=== PATIENT | female | born 1985 | race American Indian/Alaskan Native ===

== ENCOUNTER 2017-11-15 06:59 | Observation (INO) | payer MEDICAID ==
--- NOTE | 2017-11-15 07:39 | C.PDOC ---
History Of Present Illness 32 year old female () presents to the emergency department with complaints of suprapubic pain associated with pelvic cramps and vaginal bleeding since this morning. Patient states that she is currently , LMP was 08/20/17. Patient reports nausea and vomiting. She denies fever, diarrhea, dysuria/ hematuria, vaginal discharge. Time Seen by Provider: 11/15/17 07:12 Chief Complaint (Nursing): Abdominal Pain History Per: Patient History/Exam Limitations: no limitations Onset/Duration Of Symptoms: Hrs Current Symptoms Are (Timing): Still Present Severity: Moderate Location Of Pain/Discomfort: Suprapubic Associated Symptoms: Nausea, Vomiting, Other (vaginal bleeding, pelvic cramps). denies: Diarrhea, Urinary Symptoms Abnormal Vaginal Bleeding: Yes Past Medical History Reviewed: Historical Data, Nursing Documentation, Vital Signs Vital Signs: Last Vital Signs Temp 97.7 F 11/17/17 08:04 Pulse 100 H 11/17/17 08:04 Resp 20 11/17/17 08:04 BP 130/71 11/17/17 08:04 Pulse Ox 98 11/17/17 08:04 - Medical History PMH: No Chronic Diseases Surgical History: No Surg Hx Family History: States: No Known Family Hx - Social History Hx Alcohol Use: No Hx Substance Use: No - Immunization History Hx Tetanus Toxoid Vaccination: No Hx Influenza Vaccination: No Review Of Systems Constitutional: Negative for: Fever, Chills Cardiovascular: Negative for: Chest Pain Respiratory: Negative for: Shortness of Breath Gastrointestinal: Positive for: Nausea, Vomiting. Negative for: Abdominal Pain , Diarrhea Genitourinary: Positive for: Vaginal Bleeding, Pelvic Pain. Negative for: Dysuria, Hematuria, Vaginal Discharge Skin: Negative for: Rash Physical Exam - Physical Exam Appears: Well, Non-toxic, In Acute Distress (uncomfortable appearing ) Skin: Warm, Dry, No Rash Eye(s): bilateral: Normal Inspection Oral Mucosa: Moist Cardiovascular: Rhythm Regular, Other (tachycardic) Respiratory: Normal Breath Sounds, No Rales, No Rhonchi, No Wheezing Gastrointestinal/Abdominal: Bowel Sounds, Soft, Tenderness (suprapubic tenderness), No Guarding, No Rebound, Other (obese, (-) McBurney's) Back: Normal Inspection, No CVA Tenderness Extremity: Normal ROM Neurological/Psych: Oriented x3 ED Course And Treatment - Laboratory Results Result Diagrams: 11/17/17 13:52 11/15/17 08:00 O2 Sat by Pulse Oximetry: 100 (RA) Pulse Ox Interpretation: Normal - CT Scan/US US Obstetrics Other Rad Studies (CT/US): Read By Radiologist, Radiology Report Reviewed CT/US Interpretation: IMPRESSION: Single intrauterine gestation with mean gestational age of 13 weeks and 3 days. No cardiac activity is documented consistent with demise. Important findings were discussed with HEIDY Vogt on 11/15/2017 at 10:17 a.m. Progress Note: Plan: Blood work, UA, US ordered and reviewed. Patient given IV NS bolus, PO tylenol, IV zofran. Reevaluation Time: 11:20 Reassessment Condition: Unchanged (Patient still having pain, IV morphine ordered.) - Physician Consult Information Physician Contacted: Cyndi Fernandez Outcome Of Conversation: Discussed patient with general foreman, patient will be taken for D&C (12:40pm) Disposition Counseled Patient/Family Regarding: Diagnosis, Need For Followup, Rx Given - Disposition Disposition: HOSPITALIZED Disposition Time: 12:45 Condition: STABLE - Clinical Impression Clinical Impression: demise - Scribe Statement The provider has reviewed the documentation as recorded by the Scribe (Gilberto Covington) Provider Attestation: All medical record entries made by the Scribe were at my direction and personally dictated by me. I have reviewed the chart and agree that the record accurately reflects my personal performance of the history, physical exam, medical decision making, and the department course for this patient. I have also personally directed, reviewed, and agree with the discharge instructions and disposition. Decision To Admit - Pt Status Changed To: Hospital Disposition Of: Inpatient - Admit Certification Admit to Inpatient:: After my assessment, the patient will require hospitalization for at least two midnights. This is because of the severity of symptoms shown, intensity of services needed, and/or the medical risk in this patient being treated as an outpatient. - InPatient: Physician Admission Certification:: see notes - . Bed Request Type: Same Day Surgery Admitting Physician: Cyndi Fernandez Patient Diagnosis: demise
[2017-11-15 08:11] LABS: BASO % 0.3 % (0.0-2.0); EOS % 0.3 % (0.0-4.0); HEMOGLOBIN 10.9 g/dL (11.0-16.0); LYMPH # 0.9 K/uL (1.0-4.3); LYMPH % 6.1 % (20.0-40.0); MEAN CELL VOLUME 89.8 fL (81.0-99.0); MEAN CORPUSCULAR HEMOGLOBIN 30.2 pg (27.0-31.0); MEAN CORPUSCULAR HGB CONC 33.6 g/dL (33.0-37.0); MEAN PLATELET VOLUME 8.8 fL (7.2-11.7); MONO # 0.7 K/uL (0.0-0.8); MONO % 4.5 % (0.0-10.0); NEUT # 13.2 K/uL (1.8-7.0); NEUT % 88.8 % (50.0-75.0); PLATELET COUNT 260 K/uL (130-400); RBC 3.62 Mil/uL (3.80-5.20); RED CELL DISTRIBUTION WIDTH 14.7 % (11.5-14.5); WHITE BLOOD COUNT 14.9 K/uL (4.8-10.8)
[2017-11-15] MEDS ORDERED: Sodium Chloride 0.9% 1,000 ML IV ONE (08:14)
[2017-11-15 08:28] LABS: ALBUMIN 3.7 g/dL (3.5-5.0); ALT/SGPT 18 U/L (9-52); AST/SGOT 13 U/L (14-36); BLOOD UREA NITROGEN 5 mg/dL (7-17); CALCIUM 8.9 mg/dl (8.6-10.4); GFR NON-AFRICAN AMERICAN > 60
[2017-11-15] MEDS ORDERED: Sodium Chloride 0.9% 1,000 ML ONE (08:29)
[2017-11-15 08:39] LABS: BANDS 1 % (0-2); LYMPHOCYTE 7 % (20-40); MONOCYTE 5 % (0-10); NEUTROPHIL 87 % (50-75); PLATELET ESTIMATE NORMAL (NORMAL); TOTAL CELLS COUNTED 100
[2017-11-15 08:40] LABS: OVALOCYTES SLIGHT
[2017-11-15 08:47] LABS: SQUAMOUS EPITHIAL 13 /hpf (0-5); URINE BACTERIA OCC (<OCC); URINE BILIRUBIN NEGATIVE (NEGATIVE); URINE BLOOD 3+ (NEGATIVE); URINE CLARITY Hazy (Clear); URINE COLOR Red (YELLOW); URINE GLUCOSE (UA) NORMAL (Normal); URINE LEUKOCYTE ESTERASE 3+ Leu/uL (Negative); URINE PROTEIN 2+ mg/dL (NEGATIVE)
--- NOTE | 2017-11-15 10:19 | US ---
Date of service: 11/15/2017 PROCEDURE: OB Pelvic Ultrasound HISTORY: PELVIC PAIN, BLEEDING LMP: 08/26/2017 COMPARISON: None available. FINDINGS: UTERUS: Gestational sac: Single intrauterine gestation. CRL measures 7.35 cm corresponding to 13 weeks and 3 days of gestational age. Heart rate: No cardiac activity is documented. Jenna-gestational hemorrhage: None. There is no appreciable amniotic fluid. Placenta is fundal. CERVIX: Measures 3.18 cm. Long and closed. No cervical abnormality seen. RIGHT OVARY: Measures 4.0 x 2.8 x 4.4 cm. No mass lesion. Normal flow. LEFT OVARY: Measures 4.1 x 1.7 x 2.8 cm. No solid mass. Normal flow. FREE FLUID: None. OTHER FINDINGS: None. IMPRESSION: Single intrauterine gestation with mean gestational age of 13 weeks and 3 days. No cardiac activity is documented consistent with demise. Important findings were discussed with HEIDY Vogt on 11/15/2017 at 10:17 a.m.
--- NOTE | 2017-11-15 12:58 | CP.PCM.CON ---
History of Present Illness - History of Present Illness History of Present Illness: Pt is a 32y LMP 09/06 who presents to ED w/ c/o gush of blood @ 6am. She states bleeding was preceded by emesis @ 3am. She has had nausea since and when attempted po med here in ED threw it up. She c/o contraction type abdominal pain since 6am. She has had nothing to eat or drink since 20:00 except when she attempted po med. pobhx: svdx2, last delivery 2016; D&E, elective pmhx: denies pshx: as above nkda medic: denies shx: denies etoh, illicit substance use, tobacco Review of Systems - Constitutional Constitutional: absent: Anorexia, Chills, Excessive Sweating - Cardiovascular Cardiovascular: Chest Pain, Chest Pain at Rest, Diaphoresis, Dyspnea - Respiratory Respiratory: Dyspnea on Exertion - Gastrointestinal Gastrointestinal: Nausea, Vomiting - Genitourinary Genitourinary: absent: Difficulty Urinating, Urinary Urgency, Voiding Freq/ Small Amts - Reproductive: Female Reproductive:Female: Pelvic Pain - Neurological Neurological: absent: Syncope - Hematologic/Lymphatic Hematologic: absent: Easy Bleeding (denies h/o pp hemorrhage), Easy Bruising Past Patient History - Past Social History Smoking Status: Never Smoked - PSYCHIATRIC Hx Substance Use: No - SURGICAL HISTORY Hx Surgeries: No - ANESTHESIA Hx Anesthesia: No Hx Anesthesia Reactions: No Meds Allergies/Adverse Reactions: Allergies Allergy/AdvReac Type Severity Reaction Status Date / Time No Known Allergies Allergy Unverified 11/15/17 07:21 Physical Exam - Constitutional Appears: Non-toxic - Head Exam Head Exam: ATRAUMATIC, NORMOCEPHALIC - Respiratory Exam Respiratory Exam: NORMAL BREATHING PATTERN - Cardiovascular Exam Cardiovascular Exam: REGULAR RHYTHM - GI/Abdominal Exam GI & Abdominal Exam: Normal Bowel Sounds, Soft. absent: Distended, Guarding - Exam External exam: NORMAL EXTERNAL EXAM Bimanual exam: Uterine Enlargement, Uterine Tenderness. absent: Adenexal Mass, Cervical Motion Tendernes - Extremities Exam Extremities exam: Positive for: normal inspection Results - Vital Signs Recent Vital Signs: Last Vital Signs Temp 99 F 11/15/17 12:30 Pulse 94 H 11/15/17 12:30 Resp 20 11/15/17 12:30 BP 133/77 11/15/17 12:30 Pulse Ox 100 11/15/17 12:30 - Labs Result Diagrams: 11/15/17 08:00 11/15/17 08:00 Labs: Laboratory Results - last 24 hr 11/15/17 11/15/17 11/15/17 08:00 08:00 08:00 WBC 14.9 H RBC 3.62 L Hgb 10.9 L Hct 32.5 L MCV 89.8 MCH 30.2 MCHC 33.6 RDW 14.7 H Plt Count 260 MPV 8.8 Neut % (Auto) 88.8 H Lymph % (Auto) 6.1 L [place] % (Auto) 4.5 Eos % (Auto) 0.3 Baso % (Auto) 0.3 Neut # (Auto) 13.2 H Lymph # (Auto) 0.9 L [place] # (Auto) 0.7 Eos # (Auto) 0.0 Baso # (Auto) 0.0 Neutrophils % (Manual) 87 H Band Neutrophils % 1 Lymphocytes % (Manual) 7 L Monocytes % (Manual) 5 Platelet Estimate Normal Ovalocytes Slight Sodium 138 Potassium 3.7 Chloride 106 Carbon Dioxide 20 L Anion Gap 15 BUN 5 L Creatinine 0.4 L Est GFR ( Amer) > 60 Est GFR (Non-Af Amer) > 60 Random Glucose 97 Calcium 8.9 Total Bilirubin 0.8 AST 13 L ALT 18 Alkaline Phosphatase 86 Total Protein 7.2 Albumin 3.7 Globulin 3.5 Albumin/Globulin Ratio 1.0 Beta HCG, Quant 67393.00 Urine Color Urine Clarity Urine pH Ur Specific [place] Urine Protein Urine Glucose (UA) Urine Ketones Urine Blood Urine Nitrate Urine Bilirubin Urine Urobilinogen Ur Leukocyte Esterase Urine WBC (Auto) Urine RBC (Auto) Ur Squamous Epith Cells Urine Bacteria Blood Type B POSITIVE Antibody Screen Positive Antibody Identification Non Specific Antibody 11/15/17 08:30 WBC RBC Hgb Hct MCV MCH MCHC RDW Plt Count MPV Neut % (Auto) Lymph % (Auto) [place] % (Auto) Eos % (Auto) Baso % (Auto) Neut # (Auto) Lymph # (Auto) [place] # (Auto) Eos # (Auto) Baso # (Auto) Neutrophils % (Manual) Band Neutrophils % Lymphocytes % (Manual) Monocytes % (Manual) Platelet Estimate Ovalocytes Sodium Potassium Chloride Carbon Dioxide Anion Gap BUN Creatinine Est GFR ( Amer) Est GFR (Non-Af Amer) Random Glucose Calcium Total Bilirubin AST ALT Alkaline Phosphatase Total Protein Albumin Globulin Albumin/Globulin Ratio Beta HCG, Quant Urine Color Red Urine Clarity Hazy Urine pH 7.0 Ur Specific [place] 1.020 Urine Protein 2+ H Urine Glucose (UA) Normal Urine Ketones 1+ H Urine Blood 3+ H Urine Nitrate Negative Urine Bilirubin Negative Urine Urobilinogen 2.0 H Ur Leukocyte Esterase 3+ H Urine WBC (Auto) 146 H Urine RBC (Auto) 1546 H Ur Squamous Epith Cells 13 H Urine Bacteria Occ H Blood Type Antibody Screen Antibody Identification - Imaging and Cardiology US - abdomen Status: Report reviewed by me (13wk iup w/ no fca no amniotic fluid) Assessment & Plan - Assessment and Plan (Free Text) Assessment: Missed with inevitable in process P: admit for d&c. informed consent obtained
[2017-11-15] MEDS ORDERED: Midazolam 2 MG/2 ML VIAL ONE ×2 (13:22→19:38)
[2017-11-15] MEDS ORDERED: Propofol 10 mg/ml Inj (20 ML) ONE ×2 (13:22→19:39)
[2017-11-15 13:37] LABS: INR 1.2; PROTHROMBIN TIME 13.6 SECONDS (9.7-12.2)
[2017-11-15] MEDS ORDERED: Oxytocin 10 Units/ml Inj ONE ×3 (14:48→20:27)
[2017-11-15] MEDS ORDERED: HYDROmorphone 0.5 mg/0.5 ml ISec IVP PRN ×2 (15:07→19:38)
--- NOTE | 2017-11-15 18:12 | US ---
Date of service: 11/15/2017 HISTORY: s/p d c w/ fetus extraction eval for retained plac COMPARISON: Pelvic ultrasound dated 11/15/2017. TECHNIQUE: Grayscale, color Doppler and spectral evaluation the pelvis performed transvaginally FINDINGS: UTERUS: Measures 15.0 x 0.7 x 9.5 cm. Heterogeneous appearance. Markedly echogenic structure within the uterus ENDOMETRIUM: Not well-defined CERVIX: No cervical abnormality identified. RIGHT OVARY: Not visualized LEFT OVARY: Not visualized FREE FLUID: No significant free fluid noted. OTHER FINDINGS: None. IMPRESSION: Heterogeneous appearance of the uterus. Markedly echogenic structure within the endometrial canal which may represent hemorrhage and/or retained placenta.
[2017-11-15] MEDS ORDERED: Phenylephrine 10 mg/ml Inj ONE (20:02)
[2017-11-15] MEDS ORDERED: ePHEDrine 50 mg/ml Inj ONE (20:02)
[2017-11-15 20:43] LABS: LYMPH # 0.6 K/uL (1.0-4.3); LYMPH % 2.7 % (20.0-40.0); MONO # 0.7 K/uL (0.0-0.8)
[2017-11-15 20:46] LABS: BASO % 0.1 % (0.0-2.0); MEAN CELL VOLUME 90.2 fL (81.0-99.0); MEAN CORPUSCULAR HEMOGLOBIN 29.3 pg (27.0-31.0); MEAN CORPUSCULAR HGB CONC 32.5 g/dL (33.0-37.0); MEAN PLATELET VOLUME 8.1 fL (7.2-11.7); MONO % 3.6 % (0.0-10.0); NEUT # 19.4 K/uL (1.8-7.0); NEUT % 93.6 % (50.0-75.0); PLATELET COUNT 166 K/uL (130-400); RBC 1.99 Mil/uL (3.80-5.20); RED CELL DISTRIBUTION WIDTH 14.8 % (11.5-14.5); WHITE BLOOD COUNT 20.7 K/uL (4.8-10.8)
[2017-11-15 20:51] LABS: HEMOGLOBIN 5.8 g/dL (11.0-16.0)
[2017-11-15 21:06] LABS: BANDS 2 % (0-2); LYMPHOCYTE 3 % (20-40); MONOCYTE 2 % (0-10); NEUTROPHIL 93 % (50-75); PLATELET ESTIMATE NORMAL (NORMAL); TOTAL CELLS COUNTED 100
[2017-11-15 21:07] LABS: ANISOCYTOSIS SLIGHT; BURR CELLS SLIGHT; HYPOCHROMIC MODERATE; MICROCYTOSIS SLIGHT; OVALOCYTES SLIGHT; POIKILOCYTOSIS SLIGHT
[2017-11-15 22:37] VITALS: RESP 20
--- NOTE | 2017-11-15 22:52 | CP.PCM.PN ---
Subjective - Date & Time of Evaluation Date of Evaluation: 11/15/17 Time of Evaluation: 20:49 - Subjective Subjective: Called to pacu to evaluate pt w/ persistent bleeding who was s/p suction curettage for inevitable ab with missed . Objective - Vital Signs/Intake and Output Vital Signs (last 24 hours): Temp Pulse Resp BP Pulse Ox 98.2 F 92 H 20 127/72 100 11/15/17 22:34 11/15/17 22:34 11/15/17 22:34 11/15/17 22:34 11/15/17 22:00 Intake and Output: 11/15/17 11/16/17 18:59 06:59 Intake Total 1350 1125 Balance 1350 1125 - Labs Labs: 11/15/17 20:38 11/15/17 08:00 PT 13.6 SECONDS (9.7-12.2) H 11/15/17 13:14 INR 1.2 11/15/17 13:14 APTT 33 SECONDS (21-34) 11/15/17 13:14 - Constitutional Appears: No Acute Distress - Head Exam Head Exam: ATRAUMATIC, NORMOCEPHALIC - Respiratory Exam Respiratory Exam: NORMAL BREATHING PATTERN - GI/Abdominal Exam GI & Abdominal Exam: Soft. absent: Guarding - Exam Bimanual exam: absent: NORMAL BIMANUAL EXAM (vaginal exam showed blood clots and retained which was extracted.) Assessment and Plan - Assessment and Plan (Free Text) Assessment: I: s/p suction curretage w/ retained poc P: stat us to evaluate uterus for persistent retained poc. findings d/w pt.
[2017-11-15] MEDS ORDERED: Oxycodone/Acetaminophen 5/325 mg Tab PO PRN (23:07)
[2017-11-15] MEDS ORDERED: Lactated Ringer's 1,000 ML IV SCH (23:15)
[2017-11-16] MEDS: Oxycodone/Acetaminophen 5/325 mg Tab PO PRN ×3 (04:43→22:08)
[2017-11-16 05:40] LABS: BASO # 0.1 K/uL (0.0-0.2); BASO % 0.4 % (0.0-2.0); HEMOGLOBIN 8.4 g/dL (11.0-16.0); LYMPH # 1.1 K/uL (1.0-4.3); LYMPH % 3.4 % (20.0-40.0); MEAN CELL VOLUME 90.8 fL (81.0-99.0); MEAN CORPUSCULAR HEMOGLOBIN 30.1 pg (27.0-31.0); MEAN CORPUSCULAR HGB CONC 33.1 g/dL (33.0-37.0); MEAN PLATELET VOLUME 8.4 fL (7.2-11.7); MONO % 3.1 % (0.0-10.0); NEUT # 30.8 K/uL (1.8-7.0); NEUT % 93.1 % (50.0-75.0); PLATELET COUNT 199 K/uL (130-400); RBC 2.79 Mil/uL (3.80-5.20); RED CELL DISTRIBUTION WIDTH 14.2 % (11.5-14.5); WHITE BLOOD COUNT 33.1 K/uL (4.8-10.8)
--- NOTE | 2017-11-16 07:34 | OP ---
Copied To: Cyndi Fernandez MD Attending MD: Cyndi Fernandez MD PROCEDURE DATE: 11/15/2017 PREOPERATIVE DIAGNOSIS: A 13-week missed with inevitable miscarriage. POSTOPERATIVE DIAGNOSIS: A 13-week missed with inevitable miscarriage. PROCEDURE: Suction curettage. SURGEON: Cyndi Fernandez MD TYPE OF ANESTHESIA: General. COMPLICATIONS: None. ESTIMATED BLOOD LOSS: 200 mL. FINDINGS: Showed a 13-week mid position uterus with moderate amounts of products of conception and clotting. INDICATIONS: The patient is 4, para 2-0-1-2 seen now, who presented at 13 weeks in the emergency room with complains of bright red bleeding, associated with uterine contraction type pain, requiring morphine. An ultrasound showed a 13 plus week with a crown rump length of approximately 7 cm. Informed consent was obtained for D and C. No heart rate was noted on the ultrasound, and no amniotic fluid. DESCRIPTION OF PROCEDURE: The patient was taken to the operating room where she was placed in the dorsal supine position and underwent general anesthesia. She was then placed in the dorsal lithotomy position using a Candy-cane stirrups. She was prepped and draped in the routine sterile fashion. A sterile weighed speculum was placed into the vagina. Prior to this, the bladder was catheterized with a straight cath. The cervix was noted to be 1.5 cm dilated and some tissue was noted at the cervical os. This was teased out using forceps and noted to be consistent with the umbilical cord. The anterior lip of the cervix was then grasped with the single tooth tenaculum and the posterior lip of the cervix was grasped with another single tooth tenaculum. A suction curettage was performed with the size 12 suction, and the products of conception were extracted. As the suction device was removed, it was rotated until clear texture was noted. The suction curette was reintroduced to clear the uterus of all remaining content of conception, this was followed by a sharp curettage. Following sharp curettage, the suction curettage was reintroduced and removed in a rotating fashion. Four units of was started in the IV solution. Good hemostasis was obtained. All sponge counts were correct, and the patient returned to the recovery room in satisfactory condition. Cyndi Fernandez MD
[2017-11-16 08:36] LABS: BANDS 8 % (0-2); LYMPHOCYTE 4 % (20-40); MONOCYTE 2 % (0-10); NEUTROPHIL 86 % (50-75); PLATELET ESTIMATE NORMAL (NORMAL); TOTAL CELLS COUNTED 100
[2017-11-16 08:38] LABS: LARGE PLATELETS PRESENT
[2017-11-16 17:28] LABS: BASO # 0.1 K/uL (0.0-0.2); BASO % 0.3 % (0.0-2.0); EOS % 0.1 % (0.0-4.0); MEAN CELL VOLUME 89.5 fL (81.0-99.0); MEAN CORPUSCULAR HEMOGLOBIN 30.3 pg (27.0-31.0); MEAN CORPUSCULAR HGB CONC 33.8 g/dL (33.0-37.0); MEAN PLATELET VOLUME 8.7 fL (7.2-11.7); MONO % 4.1 % (0.0-10.0); NEUT # 22.2 K/uL (1.8-7.0); NEUT % 87.5 % (50.0-75.0); PLATELET COUNT 196 K/uL (130-400); RBC 2.64 Mil/uL (3.80-5.20); RED CELL DISTRIBUTION WIDTH 14.3 % (11.5-14.5); WHITE BLOOD COUNT 25.4 K/uL (4.8-10.8)
[2017-11-16 17:53] LABS: LYMPHOCYTE 7 % (20-40); MONOCYTE 2 % (0-10); NEUTROPHIL 91 % (50-75); PLATELET ESTIMATE NORMAL (NORMAL); TOTAL CELLS COUNTED 100
[2017-11-16 17:54] LABS: OVALOCYTES SLIGHT
--- NOTE | 2017-11-16 20:09 | CP.PCM.PN ---
Subjective - Date & Time of Evaluation Date of Evaluation: 11/16/17 Time of Evaluation: 10:15 - Subjective Subjective: Patient was seen and evaluated in room 462, approximately 1015 hours, received in bed. Reported one episode of mild dizziness just prior to my entering the room. Denies headaches, nausea, vomiting, palpitations, shortness of breath. Has ambulated to bathroom and voided without difficulty. Passed a small blood clot x 1. (+) abdominal cramps, requiring percocet - with good relief. Objective - Vital Signs/Intake and Output Vital Signs (last 24 hours): Temp Pulse Resp BP Pulse Ox 97.2 F L 81 20 108/44 L 100 11/16/17 07:54 11/16/17 07:54 11/16/17 07:54 11/16/17 07:54 11/16/17 07:54 Intake and Output: 11/16/17 11/17/17 18:59 06:59 Intake Total 1375 Output Total 450 Balance 925 - Medications Medications: Current Medications Acetaminophen (Tylenol 325mg Tab) 650 mg PO Q6 PRN PRN Reason: Pain, Mild (1-3) Oxycodone/Acetaminophen (Percocet 5/325 Mg Tab) 1 tab PO Q6H PRN PRN Reason: Pain, moderate (4-7) Stop: 11/18/17 23:08 Last Admin: 11/15/17 23:36 Dose: 1 tab Oxycodone/Acetaminophen (Percocet 5/325 Mg Tab) 2 tab PO Q6H PRN PRN Reason: Pain, severe (8-10) Stop: 11/18/17 23:08 Last Admin: 11/16/17 12:26 Dose: 2 tab - Labs Labs: 11/16/17 17:23 11/15/17 08:00 PT 13.6 SECONDS (9.7-12.2) H 11/15/17 13:14 INR 1.2 11/15/17 13:14 APTT 33 SECONDS (21-34) 11/15/17 13:14 - Constitutional Appears: Well, No Acute Distress - Head Exam Head Exam: ATRAUMATIC, NORMOCEPHALIC - Eye Exam Eye Exam: Normal appearance - ENT Exam ENT Exam: Mucous Membranes Moist - Neck Exam Neck Exam: Full ROM - Respiratory Exam Respiratory Exam: Clear to Ausculation Bilateral, NORMAL BREATHING PATTERN - Cardiovascular Exam Cardiovascular Exam: REGULAR RHYTHM - GI/Abdominal Exam GI & Abdominal Exam: Normal Bowel Sounds Additional comments: (+) point tenderness in bilateral lower quadrants. No rebound tenderness or guarding - Exam Additional comments: deferred - Extremities Exam Extremities Exam: Full ROM, Normal Inspection - Back Exam Back Exam: NORMAL INSPECTION - Neurological Exam Neurological Exam: Alert, Awake - Psychiatric Exam Psychiatric exam: Normal Affect, Normal Mood - Skin Skin Exam: Dry, Intact, Normal Color, Warm Assessment and Plan - Assessment and Plan (Free Text) Assessment: Trend in CBC from admission to today noted as follows: H/H 10.9/32.5 -> 5.8/19.9 -> 8.4/25.4 (S/P 2 U PRBCs) -> 8.0/23.7 WBC 14.9 -> 20.7 -> 33.1 (S/P 2U PRBCs) -> 25.4 Patient is Rh (+) HD#2, 32 y.o. P2022, S/P D&C for inevitable and retained products of conception with intraoperative blood loss requiring blood transfusion. Patient currently afebrile, vital signs stable. Patient encouraged to ambulate with assistance, increase p.o. intake of fluids, and iron supplementation. Plan: 1) CBC in AM (monitor WBC) 2) Continue present management
[2017-11-17] MEDS: Oxycodone/Acetaminophen 5/325 mg Tab PO PRN (06:22)
[2017-11-17 06:50] VITALS: TEMP 97.7
[2017-11-17 07:38] LABS: BASO % 0.3 % (0.0-2.0); EOS # 0.1 K/uL (0.0-0.7); EOS % 0.4 % (0.0-4.0); HEMOGLOBIN 7.1 g/dL (11.0-16.0); LYMPH # 2.2 K/uL (1.0-4.3); LYMPH % 15.3 % (20.0-40.0); MEAN CORPUSCULAR HEMOGLOBIN 30.7 pg (27.0-31.0); MEAN CORPUSCULAR HGB CONC 34.1 g/dL (33.0-37.0); MEAN PLATELET VOLUME 8.7 fL (7.2-11.7); MONO # 0.8 K/uL (0.0-0.8); MONO % 5.3 % (0.0-10.0); NEUT # 11.2 K/uL (1.8-7.0); NEUT % 78.7 % (50.0-75.0); RBC 2.31 Mil/uL (3.80-5.20); RED CELL DISTRIBUTION WIDTH 14.4 % (11.5-14.5); WHITE BLOOD COUNT 14.2 K/uL (4.8-10.8)
--- NOTE | 2017-11-17 07:58 | OP ---
Copied To: Cyndi Fernandez MD Attending MD: Cyndi Fernandez MD PROCEDURE DATE: 11/15/2017 PREOPERATIVE DIAGNOSIS: Retained products of conception. POSTOPERATIVE DIAGNOSIS: Retained products of conception. PROCEDURE: Ultrasound-guided suction curettage. SURGEON: Dr. Fernandez. ANESTHESIA: Spinal. ANESTHESIOLOGIST: Dr. Chinchilla. ESTIMATED BLOOD LOSS: 350 mL. PATHOLOGY SPECIMEN: Products of conception to Pathology. DESTINATION: The patient to PACU in stable condition. INDICATIONS: The patient is a 32-year-old female, 4, para 2-0-1-2, who presented to the ED with complaints of bleeding. She was found to have a missed at 13 weeks. The patient requested surgical management. She was taken back to the OR for a D and C. Following the completion of the procedure, the patient was brought to the recovery room and nurse notified me of continued bleeding and exam was done and retained tissue was removed. At this point, we decided to return to the OR for retained products of conception. An informed consent was obtained. Risks, benefits, and indications discussed with the patient. She agreed with planned procedure. DESCRIPTION OF PROCEDURE: The patient was taken to the operating room. She was placed in dorsal supine position, underwent her anesthesia. She was then placed in a dorsal lithotomy position using the Tramaine Randall stirrups. She was then prepped and draped in routine sterile fashion. A weighted speculum was placed into the vagina and the anterior lip of the cervix was grasped with a single-tooth tenaculum. The posterior lip was grasped with a ring forceps. The milieu technician was present, her name is Imelda Ching. Under ultrasound guidance, the size #12 suction curette was advanced to the fundus and directed towards the retained products, blood clots, and possible retained placenta tissue. The suction curette was suctioned in a rotating manner as the curette was withdrawn. The procedure was continued under ultrasound guidance. A portion of the size 11 suction was not reaching the fundus, so a smaller suction curette that was longer was used. This was a size 10. The suction was placed. The small suction was advanced to the fundus and directed towards the anterior wall where the placental tissue appeared and was removed from the uterus in a routine fashion. This procedure was performed repeatedly and placental tissue was noted to be extracted. This was followed by placement of the size 11 suction curette, followed by sharp curettage with the Banjo curette. Following sharp curettage with the Banjo curette, only blood was extracted, no tissue. This was then again followed by suction curettage with the size 11 curette until no placental tissue was extracted. The patient received 30 units of Pitocin in a liter. The uterus was firm, no active bleeding was noted. She returned to the PACU in stable condition. Cyndi Fernandez MD
[2017-11-17 08:08] VITALS: BP 130/71; PULSE 100
--- NOTE | 2017-11-17 08:33 | CP.PCM.PN ---
<Jonas Matos - Last Filed: 11/17/17 08:30> Subjective - Date & Time of Evaluation Date of Evaluation: 11/17/17 Time of Evaluation: 08:30 - Subjective Subjective: Jonas Matos, PGY-1, Wet Trimmer progress note for Dr. Zepeda Patient seen and evaluated at bedside. No acute overnight events. Today, patient reports mild vaginal bleeding. She cannot describe how many pads she has gone through but reports that she was bleeding as much as she bleeds on a period. She also reports increased frequency of urination and a history of nausea earlier this AM. Patient reported no crampy pain this morning after taking percocet this morning. Patient reports flatus but no bowel movement. Patient denies dizziness, headache, vaginal discharge, dysuria, and hematuria. 12-point ROS was negative except for what was listed above Objective - Vital Signs/Intake and Output Vital Signs (last 24 hours): Temp Pulse Resp BP Pulse Ox 97.7 F 100 H 20 130/71 98 11/17/17 08:04 11/17/17 08:04 11/17/17 08:04 11/17/17 08:04 11/17/17 08:04 - Medications Medications: Current Medications Acetaminophen (Tylenol 325mg Tab) 650 mg PO Q6 PRN PRN Reason: Pain, Mild (1-3) Ferrous Sulfate (Feosol) 325 mg PO TID ALEX Oxycodone/Acetaminophen (Percocet 5/325 Mg Tab) 1 tab PO Q6H PRN PRN Reason: Pain, moderate (4-7) Stop: 11/18/17 23:08 Last Admin: 11/15/17 23:36 Dose: 1 tab Oxycodone/Acetaminophen (Percocet 5/325 Mg Tab) 2 tab PO Q6H PRN PRN Reason: Pain, severe (8-10) Stop: 11/18/17 23:08 Last Admin: 11/17/17 06:22 Dose: 2 tab - Labs Labs: 11/17/17 07:25 11/15/17 08:00 PT 13.6 SECONDS (9.7-12.2) H 11/15/17 13:14 INR 1.2 11/15/17 13:14 APTT 33 SECONDS (21-34) 11/15/17 13:14 - Constitutional Appears: Well, Non-toxic, No Acute Distress - Head Exam Head Exam: ATRAUMATIC, NORMAL INSPECTION, NORMOCEPHALIC - Eye Exam Eye Exam: EOMI, PERRL - Neck Exam Neck Exam: Full ROM, Normal Inspection - Respiratory Exam Respiratory Exam: Clear to Ausculation Bilateral, NORMAL BREATHING PATTERN - Cardiovascular Exam Cardiovascular Exam: Tachycardia, REGULAR RHYTHM - GI/Abdominal Exam GI & Abdominal Exam: Soft, Tenderness (minimal tenderness along lower abdomen), Normal Bowel Sounds - Extremities Exam Extremities Exam: Full ROM, Normal Inspection - Neurological Exam Neurological Exam: Alert, Awake, CN II-XII Intact, Oriented x3 Neuro motor strength exam: Left Upper Extremity: 5, Right Upper Extremity: 5, Left Lower Extremity: 5, Right Lower Extremity: 5 - Psychiatric Exam Psychiatric exam: Normal Affect, Normal Mood - Skin Skin Exam: Dry, Intact, Normal Color Assessment and Plan - Assessment and Plan (Free Text) Assessment: 32 year old female LMP 08/27/2017 presented with vaginal bleeding and crampy, contraction-like abdomina pain on 11/15/17. Patient was admitted for D and C or missed . Plan: Missed -Patient underwent D and C procedure by Dr. Reinoso on 11/15/17 -Patient had significant bleeding during procedure -Hgb on admission was 10.9. Hgb was 5.8 post procedure. Hgb increased to 8.4 after 2 U of PRBCs given on 11/16. Hgb has decreased to 7.1 today. -Repeat CBC to monitor H&H. -Ferrous sulfate to be prescribed post discharge. -Motrin 600 mg Q6PRN for pain for 10 days post discharge. Leukocytosis 2/2 to stress vs. infection -WBC: peaked at 33.1. Today, WBC count has decreased to 14.2 today. -UA on 11/15: showed 146 WBC, occassional bacteria, red and hazy color, protein 2 +, ketones 1+ -SIRS criteria fulfilled: WBC: 14.2, Pulse: 100, RR: 20, Temp: 97.7 -Unlikely source of infection. Likely stress induced -Patient will be discharged with doxycycline 100 mg BID for 7 days. <Yasmin Zepeda - Last Filed: 11/17/17 09:47> Objective - Vital Signs/Intake and Output Vital Signs (last 24 hours): Temp Pulse Resp BP Pulse Ox 97.7 F 100 H 20 130/71 98 11/17/17 08:04 11/17/17 08:04 11/17/17 08:04 11/17/17 08:04 11/17/17 08:04 - Medications Medications: Current Medications Acetaminophen (Tylenol 325mg Tab) 650 mg PO Q6 PRN PRN Reason: Pain, Mild (1-3) Ferrous Sulfate (Feosol) 325 mg PO TID ALEX Last Admin: 11/17/17 09:26 Dose: 325 mg Oxycodone/Acetaminophen (Percocet 5/325 Mg Tab) 1 tab PO Q6H PRN PRN Reason: Pain, moderate (4-7) Stop: 11/18/17 23:08 Last Admin: 11/15/17 23:36 Dose: 1 tab Oxycodone/Acetaminophen (Percocet 5/325 Mg Tab) 2 tab PO Q6H PRN PRN Reason: Pain, severe (8-10) Stop: 11/18/17 23:08 Last Admin: 11/17/17 06:22 Dose: 2 tab - Labs Labs: 11/17/17 07:25 11/15/17 08:00 PT 13.6 SECONDS (9.7-12.2) H 11/15/17 13:14 INR 1.2 11/15/17 13:14 APTT 33 SECONDS (21-34) 11/15/17 13:14 - Exam External exam: NORMAL EXTERNAL EXAM Additional comments: No bloo on perienum o rpad Assessment and Plan - Assessment and Plan (Free Text) Plan: agree with above s/p DxC Suction with acute blood loss, currently stable WBC: 33-->25-->14 (? stress inducced unsure, more likey compatile with septic ) HB: s/p 2 units AM Hb 7.1 f/u repeat VS per protocol will repeat cbc and if stable, asytmposm meets eloisa reilly dc home advised of iportance of f/u within 1- 2weeks. NO sex, no coudhign no tamponx x 2 weeks. Pt referred to [facility]. Yasmin Zepeda MD
[2017-11-17 13:57] LABS: BASO % 0.1 % (0.0-2.0); EOS % 0.4 % (0.0-4.0); HEMOGLOBIN 7.6 g/dL (11.0-16.0); LYMPH # 2.1 K/uL (1.0-4.3); MEAN CELL VOLUME 90.4 fL (81.0-99.0); MEAN CORPUSCULAR HEMOGLOBIN 30.9 pg (27.0-31.0); MEAN CORPUSCULAR HGB CONC 34.2 g/dL (33.0-37.0); MEAN PLATELET VOLUME 8.4 fL (7.2-11.7); MONO # 0.6 K/uL (0.0-0.8); MONO % 4.7 % (0.0-10.0); NEUT # 10.2 K/uL (1.8-7.0); NEUT % 78.8 % (50.0-75.0); RBC 2.46 Mil/uL (3.80-5.20); RED CELL DISTRIBUTION WIDTH 14.3 % (11.5-14.5)
--- NOTE | 2017-11-17 14:16 | CARD ---
APPROVED REPORT Date of service: 11/15/2017 EKG Measurement Heart [id number] <Conclusion> Normal sinus rhythm Normal ECG
--- NOTE | 2017-11-17 14:26 | CP.PCM.DIS ---
Provider - Provider Date of Admission: 11/15/17 17:16 Attending physician: Cyndi Fernandez MD Time Spent in preparation of Discharge (in minutes): 30 Hospital Course - Lab Results Lab Results: Most Recent Lab Values WBC 13.0 K/uL (4.8-10.8) H 11/17/17 13:52 RBC 2.46 Mil/uL (3.80-5.20) L 11/17/17 13:52 Hgb 7.6 g/dL (11.0-16.0) L 11/17/17 13:52 Hct 22.2 % (34.0-47.0) L 11/17/17 13:52 MCV 90.4 fL (81.0-99.0) 11/17/17 13:52 MCH 30.9 pg (27.0-31.0) 11/17/17 13:52 MCHC 34.2 g/dL (33.0-37.0) 11/17/17 13:52 RDW 14.3 % (11.5-14.5) 11/17/17 13:52 Plt Count 200 K/uL (130-400) 11/17/17 13:52 MPV 8.4 fL (7.2-11.7) 11/17/17 13:52 Neut % (Auto) 78.8 % (50.0-75.0) H 11/17/17 13:52 Lymph % (Auto) 16.0 % (20.0-40.0) L 11/17/17 13:52 [place] % (Auto) 4.7 % (0.0-10.0) 11/17/17 13:52 Eos % (Auto) 0.4 % (0.0-4.0) 11/17/17 13:52 Baso % (Auto) 0.1 % (0.0-2.0) 11/17/17 13:52 Neut # (Auto) 10.2 K/uL (1.8-7.0) H 11/17/17 13:52 Lymph # (Auto) 2.1 K/uL (1.0-4.3) 11/17/17 13:52 Geary # (Auto) 0.6 K/uL (0.0-0.8) 11/17/17 13:52 Eos # (Auto) 0.0 K/uL (0.0-0.7) 11/17/17 13:52 Baso # (Auto) 0.0 K/uL (0.0-0.2) 11/17/17 13:52 Neutrophils % (Manual) 91 % (50-75) H 11/16/17 17:23 Band Neutrophils % 8 % (0-2) H 11/16/17 05:34 Lymphocytes % (Manual) 7 % (20-40) L 11/16/17 17:23 Monocytes % (Manual) 2 % (0-10) 11/16/17 17:23 Platelet Estimate Normal (NORMAL) 11/16/17 17:23 Large Platelets Present 11/16/17 05:34 RBC Morphology Normal 11/16/17 05:34 Hypochromasia (manual) Moderate 11/15/17 20:38 Poikilocytosis (manual Slight 11/15/17 20:38 Anisocytosis (manual) Slight 11/15/17 20:38 Microcytosis (manual) Slight 11/15/17 20:38 Ovalocytes Slight 11/16/17 17:23 [place] Cells Slight 11/15/17 20:38 PT 13.6 SECONDS (9.7-12.2) H 11/15/17 13:14 INR 1.2 11/15/17 13:14 APTT 33 SECONDS (21-34) 11/15/17 13:14 Sodium 138 mmol/L (132-148) 11/15/17 08:00 Potassium 3.7 mmol/L (3.6-5.2) 11/15/17 08:00 Chloride 106 mmol/L (98-107) 11/15/17 08:00 Carbon Dioxide 20 mmol/L (22-30) L 11/15/17 08:00 Anion Gap 15 (10-20) 11/15/17 08:00 BUN 5 mg/dL (7-17) L 11/15/17 08:00 Creatinine 0.4 mg/dL (0.7-1.2) L 11/15/17 08:00 Est GFR ( Amer) > 60 11/15/17 08:00 Est GFR (Non-Af Amer) > 60 11/15/17 08:00 Random Glucose 97 mg/dL (65-105) 11/15/17 08:00 Calcium 8.9 mg/dl (8.6-10.4) 11/15/17 08:00 Total Bilirubin 0.8 mg/dL (0.2-1.3) 11/15/17 08:00 AST 13 U/L (14-36) L 11/15/17 08:00 ALT 18 U/L (9-52) 11/15/17 08:00 Alkaline Phosphatase 86 U/L (38-126) 11/15/17 08:00 Total Protein 7.2 g/dL (6.3-8.3) 11/15/17 08:00 Albumin 3.7 g/dL (3.5-5.0) 11/15/17 08:00 Globulin 3.5 gm/dL (2.2-3.9) 11/15/17 08:00 Albumin/Globulin Ratio 1.0 (1.0-2.1) 11/15/17 08:00 Beta HCG, Quant 08804.00 mIU/ML 11/15/17 08:00 Urine Color Red (YELLOW) 11/15/17 08:30 Urine Clarity Hazy (Clear) 11/15/17 08:30 Urine pH 7.0 (5.0-8.0) 11/15/17 08:30 Ur Specific [place] 1.020 (1.003-1.030) 11/15/17 08:30 Urine Protein 2+ mg/dL (NEGATIVE) H 11/15/17 08:30 Urine Glucose (UA) Normal mg/dL (Normal) 11/15/17 08:30 Urine Ketones 1+ mg/dL (NEGATIVE) H 11/15/17 08:30 Urine Blood 3+ (NEGATIVE) H 11/15/17 08:30 Urine Nitrate Negative (NEGATIVE) 11/15/17 08:30 Urine Bilirubin Negative (NEGATIVE) 11/15/17 08:30 Urine Urobilinogen 2.0 mg/dL (0.2-1.0) H 11/15/17 08:30 Ur Leukocyte Esterase 3+ Romulo/uL (Negative) H 11/15/17 08:30 Urine WBC (Auto) 146 /hpf (0-5) H 11/15/17 08:30 Urine RBC (Auto) 1546 /hpf (0-3) H 11/15/17 08:30 Ur Squamous Epith Cells 13 /hpf (0-5) H 11/15/17 08:30 Urine Bacteria Occ (<OCC) H 11/15/17 08:30 Blood Type B POSITIVE 11/15/17 08:00 Antibody Screen Positive 11/15/17 08:00 Antibody Identification Non Specific Antibody 11/15/17 08:00 - Hospital Course Hospital Course: admitted for suction dxc increaed wbc 33 and hb 5.8 s/p suction dxc increaed bleeding US cannot rule out retained poc underent additiona evuatoin labs improibng stable for dc pt requesting dc - Date & Time of H&P Date of H&P: 11/17/17 Time of H&P: 14:00 Discharge Exam - Head Exam Head Exam: ATRAUMATIC, NORMAL INSPECTION, NORMOCEPHALIC - Eye Exam Eye Exam: EOMI Pupil Exam: PERRL - Respiratory Exam Respiratory Exam: Clear to PA & Lateral, NORMAL BREATHING PATTERN, UNREMARKABLE - Cardiovascular Exam Cardiovascular Exam: REGULAR RHYTHM, +S1, +S2 - GI/Abdominal Exam GI & Abdominal Exam: Hypoactive Bowel Sounds, Normal Bowel Sounds, Soft, Unremarkable - Rectal Exam Rectal Exam: NORMAL INSPECTION - Exam External exam: NORMAL EXTERNAL EXAM Discharge Plan - Follow Up Plan Condition: STABLE Disposition: HOME/ ROUTINE
--- NOTE | 2017-11-17 15:27 | US ---
Date of service: 11/15/2017 PROCEDURE: LIMITED PELVIC ULTRASOUND HISTORY: US GUIDED FOR RPOC , D C DONE BY DR SINGH COMPARISON: Transvaginal pelvic ultrasound 11/15/2017 5:41 p.m.. TECHNIQUE: Transabdominal ultrasonography was performed in sagittal projections with 4 images submitted. FINDINGS: Prominent endometrium persists and measures at least 24 mm thickness compared 33 mm thickness previously. Gas is seen in the endometrial cavity deep to the hyperechoic components within the endometrial cavity suggesting recent instrumentation. Please see op report further detail. IMPRESSION: Prominent endometrium up to 24 mm, diminished in the interval. Please see op report further detail.
[2017-11-19 09:12] VITALS: O2SAT 100
== END 2017-11-17 15:25 | disposition home or self-care (01) ==
LOC: C.ER 06:59 → C.SDS 12:53 → C.4M 17:16 → C.9S 17:16
PROVIDERS: ADMIT Obstetrics & Gynecology; ATTEND Obstetrics & Gynecology
DX: O03.4 Incomplete spontaneous abortion without complication (principal)

== ENCOUNTER 2018-02-18 02:58 | Emergency (ER) | payer MEDICAID ==
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
[2018-02-18 03:18] VITALS: BMI 29.0
[2018-02-18 03:57] LABS: SQUAMOUS EPITHIAL < 1 /hpf (0-5); URINE BILIRUBIN NEGATIVE (NEGATIVE); URINE BLOOD NEGATIVE (NEGATIVE); URINE CLARITY Clear (Clear); URINE COLOR Straw (YELLOW); URINE GLUCOSE (UA) NORMAL (Normal); URINE LEUKOCYTE ESTERASE NEG Leu/uL (Negative); URINE PROTEIN NEGATIVE (NEGATIVE); URINE UROBILINOGEN NORMAL mg/dL (0.2-1.0)
[2018-02-18 04:23] LABS: HCG,QUALITATIVE URINE NEGATIVE (NEGATIVE)
[2018-02-18 04:58] VITALS: O2SAT 98
[2018-02-18] MEDS ORDERED: Bacitracin 500 Units/gm Oint Foilpak UD ONE (05:29)
[2018-02-18 05:30] VITALS: BP 130/83; PULSE 73; RESP 16; TEMP 97.8
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
== END 2018-02-18 05:43 | disposition home or self-care (01) ==
LOC: C.ER 02:58
DX: S21.119A Laceration without foreign body of unspecified front wall of thorax without penetration into thoracic cavity, initial encounter (principal); Y08.89XA Assault by other specified means, initial encounter; Y92.9 Unspecified place or not applicable